=== PATIENT | male | born 1960 | race Caucasian/White ===

== ENCOUNTER 2025-02-09 08:25 | Emergency (ER) | payer OTHER, SELFPAY ==
[2025-02-09 08:40] VITALS: BP 163/95; PULSE 78; RESP 16; TEMP 36.4; O2SAT 99
--- NOTE | 2025-02-09 09:02 | ED_ITS ---
HPI - Back Pain/Injury General Chief Complaint: Back Pain/Injury Stated Complaint: Back Pain Time Seen by Provider: 02/09/25 08:46 Source: patient, family () and RN notes reviewed Mode of arrival: ambulatory Limitations: no limitations History of Present Illness HPI Narrative: Patient presents today complaining of one-week history of left low back pain that very occasionally radiates down his left buttock. Denies numbness or tingling aside from the chronic tingling in the feet that he has at baseline. He currently rates his pain at rest 1/10, but this increases with movement and can increase to 7/10. He has been taking ibuprofen only mild relief. 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 Symptoms started the day after. Denies numbness or tingling in the legs or genitalia. Denies loss of bowel or bladder control. Related Data Allergies Allergy/AdvReac Type Severity Reaction Status Date / Time No Known Allergies Allergy Mild Verified 02/09/25 09:11 Review of Systems Review of Systems: CONSTITUTIONAL: Denies body aches, fever, chills, or sweats. EYES: Denies visual changes, redness, or discharge. ENT: Denies rhinorrhea, congestion, sore throat, or otalgia. CARDIOVASCULAR: Denies chest pain, palpitations, or edema. RESPIRATORY: Denies cough or dyspnea. GASTROINTESTINAL: Denies abdominal pain, nausea, vomiting, or diarrhea. GENITOURINARY: Denies dysuria or hematuria. SKIN: Denies rash, itching, or wounds. MUSCULOSKELETAL: Denies joint pain, or myalgia.+ back pain NEUROLOGIC: Denies headache, numbness, tingling, or weakness. PSYCH: Denies depression or anxiety. [facility] Family History Family History Father Hypertension Family history of coronary artery disease Sibling Hypertension Cerebrovascular accident Family history of kidney disease Family history of sudden Mother Carcinoma of colon Father Family history of rheumatoid arthritis Family history of coronary artery disease Mother Carcinoma of colon Social History Social History Smoking status: Never smoker Second hand tobacco smoke exposure: No Alcohol intake: current Comments At time of signature, I have reviewed and agree with nursing past medical, surgical, social and family history unless otherwise noted. Please see nursing chart for further information. There is no relevant family history pertinent to the presenting complaint Exam Narrative: GENERAL: Well-appearing, well-nourished, and in no acute distress. HEAD: Normocephalic, atraumatic. EYES: EOMI. No redness or drainage. Conjunctivae normal. ENT: Mucous membranes pink and moist. NECK: Normal AROM. CHEST: No respiratory distress. MUSCULOSKELETAL: No bony tenderness of the thoracic or lumbar spine. Patient has mild left lower lumbar paraspinal muscle tenderness that extends to the sacroiliac joint. Distal sensation intact. Saddle sensation intact. Capillary refill normal.5/5 bilateral lower extremity strength. EXTREMITIES: Normal range of motion. No edema. SKIN: Warm, dry, no rash. Capillary refill normal. Normal skin turgor. NEURO: No focal deficits. Alert and oriented x3. Gait steady. PSYCH: Normal affect. No signs of depression or anxiety. Course Course Level of Care: Express Care Visit Vital Signs Vital signs: Vital Signs Temperature 97.5 F L 02/09/25 08:40 Pulse Rate 78 02/09/25 08:40 Respiratory Rate 16 02/09/25 08:40 Blood Pressure 163/95 H 02/09/25 08:40 Pulse Oximetry 99 02/09/25 08:40 Temperature 97.5 F L 02/09/25 08:40 Pulse Rate 78 02/09/25 08:40 Respiratory Rate 16 02/09/25 08:40 Blood Pressure 163/95 H 02/09/25 08:40 Pulse Oximetry 99 02/09/25 08:40 Reviewed MDM - Back Pain/Injury MDM Narrative Medical decision making narrative: Patient will be treated with Flexeril and prednisone. Recommend PCP follow-up. Anticipatory guidance given. Differential Diagnosis Differential diagnosis: Likely lumbar radiculopathy, sciatica and strain of lumbar region Critical Care Time Critical Care Time Critical Care Time: No Discharge Plan Discharge Clinical Impression: Strain of lumbar region Qualifiers: Encounter type: initial encounter Qualified Code(s): S39.012A - Strain of muscle, fascia and tendon of lower back, initial encounter Patient Disposition: Home Condition: Stable Instructions: Lumbar Radiculopathy (ED) Additional Instructions: Please take the Flexeril and prednisone as directed. Do not drive within 8 hours of taking the Flexeril as it can make you drowsy. Continue Tylenol or ibuprofen if needed. Follow-up with a PCP in 1 week if symptoms persist. No heavy lifting, jumping, twisting until symptoms resolve. Your blood pressure was elevated above 120/80 today at Urgent Care. This puts you above the threshold for follow up. Please schedule a followup visit with your personal physician as soon as possible, for further evaluation and treatment. Even blood pressure exceeding 120/80 may indicate pre-hypertension. Patient Language: Croatian Prescriptions: New cyclobenzaprine 10 mg tablet 10 mg PO TID PRN (Reason: muscle spasm) Qty: 20 0RF prednisone 20 mg tablet 40 mg PO DAILY 5 Days Qty: 10 0RF Follow-up/Referrals: PHYSICIAN,[employer]OBI[employer] DESIGNER [Primary Care Provider] - Time of Disposition: 09:11
== END 2025-02-09 09:17 | disposition home or self-care (01) ==
PROVIDERS: Emergency Provider Nurse Practitioner
DX: S39.012A Strain of muscle, fascia and tendon of lower back, initial encounter (principal); X58.XXXA Exposure to other specified factors, initial encounter
CPT/HCPCS: 99213; G0463